=== PATIENT | female | born 1935 | race Caucasian/White ===

== ENCOUNTER → 2023-11-16 | Outpatient (CLI) | payer MEDICARE, SELFPAY ==
--- NOTE | 2023-11-16 05:59 | ECHOD_ITS ---
Reason For Study: AFIB Procedure This was a 2D Doppler, Color Flow transthoracic echocardiogram. Exam performed in department. Left Ventricle Normal LV size. Left ventricular systolic function is normal. The left ventricular ejection fraction is 70 %. Stage 1 diastolic dysfunction. No regional wall motion abnormalities noted. Right Ventricle Normal RV size. Normal systolic function. Atria Normal left atrium. Normal right atrium. Mitral Valve Normal mitral valve. Tricuspid Valve Normal tricuspid valve. Mild tricuspid valve insufficiency. Pulmonary artery systolic pressure is 30 mmHg. Aortic Valve Trisinus/trileaflet aortic valve. Mild focal aortic valve calcification. Pulmonic Valve Normal pulmonic valve. Great Vessels Normal aortic root. The pulmonary artery is normal size. Inferior vena cava collapse with respiration. Pericardium/Pleural No pericardial effusion. MMode/2D Measurements & Calculations LVIDd: 4.7 cm IVSd: 1.0 cm LAV(MOD-bp): 66.9 ml LVIDs: 2.5 cm LVPWd: 1.2 cm LAV(MOD-bp) Indexed: 42.7 ml/m2 RVDd: 2.9 cm FS: 47.7 % LAV(MOD-sp2): 67.6 ml LAV(MOD-sp4): 64.5 ml SV(MOD-sp4): 44.8 ml SV(sp4-el): 45.3 ml LVAd ap4: 23.7 cm2 LVLd ap4: 7.7 cm EDV(MOD-sp4): 61.8 ml EDV(sp4-el): 61.9 ml LVAs ap4: 10.5 cm2 LVLs ap4: 5.6 cm ESV(MOD-sp4): 17.0 ml ESV(sp4-el): 16.7 ml EF(MOD-sp4): 72.5 % EF(sp4-el): 73.1 % LA A4 area: 21.4 cm2 LA dimension(2D): 3.5 cm RA A4 area: 11.5 cm2 TAPSE: 1.9 cm Time Measurements MV dec time: 0.33 sec Doppler Measurements & Calculations MV E max fernando: 69.3 cm/sec Lat Peak E' Fernando: 4.5 cm/sec Med Peak E' Fernando: 3.2 cm/sec MV A max fernando: 139.0 cm/sec E/E' lat: 15.4 E/E' med: 21.6 MV E/A: 0.50 MV V2 max: 146.6 cm/sec Ao V2 max: 215.9 cm/sec MV max P.6 mmHg MV dec slope: 211.9 cm/sec2 Ao max P.7 mmHg MV V2 mean: 85.1 cm/sec Ao V2 mean: 149.1 cm/sec MV mean P.3 mmHg Ao mean P.2 mmHg MV V2 VTI: 34.1 cm Ao V2 VTI: 51.3 cm PA V2 max: 130.7 cm/sec TR max fernando: 250.2 cm/sec PA V2 mean: 86.6 cm/sec TR max P.0 mmHg ECHO/Echo Complete Interpretation Summary Normal LV size. Left ventricular systolic function is normal. The left ventricular ejection fraction is 70 %. Stage 1 diastolic dysfunction. Pulmonary artery systolic pressure is 30 mmHg. Structurally normal valves. Ordering Physician: John Reese Referring Physician: John Reese Performed By: Tamie Garcia RCS
--- NOTE | 2023-11-16 12:26 | STRESSREP ---
Stress Test Report Pharmacologic myocardial perfusion stress test. 88-year-old lady for preoperative evaluation Resting EKG demonstrates sinus rhythm with a rate of 73 bpm. Resting blood pressure is 136/65 mmHg. 0.4 mg of regadenoson was infused per usual protocol followed by rapid intravenous saline flush injection. Continuous EKG monitoring was performed. The maximum heart rate was 91 bpm which was 69 of max impacted heart rate the maximum workload was 1 metabolic equivalent. At rest there were no ST or T wave changes noted to suggest ischemia and at peak infusion nonspecific ST changes were noted which did not meet the criteria for ischemia. No clinical angina is noted. The final blood pressure was 123/6 mmHg. Myocardial perfusion protocol. 11.5 mCi of technetium 99m sestamibi was injected at rest. 0.4 mg of regadenoson was infused per usual protocol. At peak infusion 33.7 mCi of technetium 99m sestamibi was injected stress images were obtained stress and rest images were reconstructed and compared in the short axis vertical long and horizontal long axis. Gated images were also obtained. Perfusion SPECT analysis: Review of the stress images demonstrate normal uptake of tracer noted in all areas of the myocardium. The resting images similar demonstrated normal uptake of tracer noted in all areas of the myocardium. No areas of reversibility are noted to suggest ischemia and no previous infarct is noted. Gated SPECT analysis: The gated ejection fraction is 78%. Conclusion: Normal pharmacologic myocardial perfusion stress test. Preserved ejection fraction.
== END | disposition home or self-care (01) ==
PROVIDERS: PCP Family Medicine; Referring Provider Internal Medicine Cardiovascular Disease; Visit Provider Internal Medicine Cardiovascular Disease
DX: Z98.890 Other specified postprocedural states (principal); I48.0 Paroxysmal atrial fibrillation; I10 Essential (primary) hypertension; E78.00 Pure hypercholesterolemia, unspecified; Z01.810 Encounter for preprocedural cardiovascular examination
CPT/HCPCS: 78452; 93017; 93306; A9500; A4216; J2785

== ENCOUNTER → 2023-11-24 | Outpatient (CLI) | payer MEDICARE, SELFPAY ==
--- NOTE | 2023-11-24 07:42 | CDU_ITS ---
Reason For Study: Carotid stenosis Rt. Velocities/BP Lt. Velocities/BP Prox CCA 80.7/6.6 cm/sec. Prox CCA 81.4/15.1 cm/sec. Mid CCA 80.6/11.3 cm/sec. Mid CCA 87.6/15.1 cm/sec. Dist CCA 94.9/11.3 cm/sec. Dist CCA 92.5/16.3 cm/sec. Prox ICA 97.4/7.9 cm/sec. Prox ICA 122.9/20.6 cm/sec. Mid ICA 132.1/22.5 cm/sec. Mid ICA 91.9/20.6 cm/sec. Dist ICA 121.1/24.3 cm/sec. Dist ICA 110.1/20.6 cm/sec. Rt. ICA/CCA = 1.64. Lt. ICA/CCA = 1.40. Prox ECA 74/6.9 cm/sec. Prox ECA 112.1/5.3 cm/sec. Rt. Vert. 59.7/13.5 cm/sec. Lt. Vert. 51.3/9.7 cm/sec. Right Extracranial There is heterogeneous, irregular atherosclerotic plaque noted in the right common carotid artery. There is heterogeneous, irregular atherosclerotic plaque noted in the right internal carotid artery. There is heterogeneous, irregular atherosclerotic plaque noted in the right external carotid artery. Antegrade flow is noted in the right vertebral artery. Left Extracranial There is heterogeneous, irregular atherosclerotic plaque noted in the left common carotid artery. There is heterogeneous, irregular atherosclerotic plaque noted in the left internal carotid artery. The left internal carotid artery is very tortuous. There is homogeneous, smooth atherosclerotic plaque noted in the left external carotid artery. Antegrade flow is noted in the left vertebral artery. Procedure This is a Carotid Duplex examination using B-mode, color flow and specral Doppler. Carotid Duplex [id number]. Exam performed in department. VL/Carotid Duplex Ultrasound Interpretation Summary Widely patent postoperative changes of the right carotid bulb and proximal inte rnal carotid artery with less than 50% stenosis Less than 50% stenosis right external carotid artery Irregular plaque at the proximal left internal carotid artery with less than 50 % stenosis Less than 50% stenosis left external carotid artery Patent and antegrade vertebral arteries bilaterally Ordering Physician: Carissa Moss Referring Physician: Asher Whalen Performed By: Soco Conti RVT
== END | disposition home or self-care (01) ==
LOC: CVS 07:41
PROVIDERS: PCP Family Medicine; Referring Provider Physician Assistant; Visit Provider Physician Assistant
DX: I65.23 Occlusion and stenosis of bilateral carotid arteries (principal)
CPT/HCPCS: 93880